=== PATIENT | male | born 2000 | race Caucasian/White ===

== ENCOUNTER 2021-12-18 16:28 | Emergency (ER) | payer OTHER ==
[~2021-12-18] VITALS: Ht 182.9 cm; Wt 104.3 kg
[2021-12-18] MEDS ORDERED: IBUPROFEN 800800 MG PO (17:25)
[2021-12-18 17:30] VITALS: BP 168/96
== END 2021-12-18 17:30 | disposition home or self-care (01) ==
LOC: M.ERS 16:28
DX: M54.50 Low back pain, unspecified (principal); W10.8XXA Fall (on) (from) other stairs and steps, initial encounter; Y93.89 Activity, other specified; Y92.89 Other specified places as the place of occurrence of the external cause; Y99.0 Civilian activity done for income or pay